=== PATIENT | male | born 1990 | race African-American/Black ===

== ENCOUNTER 2018-03-25 18:16 | Emergency (ER) | payer BC ==
--- NOTE | 2018-03-25 19:25 | RAD ---
RIGHT HAND THREE VIEWS: History: Fall, right hand injury. Comparison: 02-10-08 FINDINGS: Joint spaces are preserved. No acute fracture or dislocation. Small osteochondroma projects laterally from the proximal metaphysis of the proximal phalanx ring finger. IMPRESSION: No acute osseous abnormalities are demonstrated. POS: BALDO
--- NOTE | 2018-03-25 19:51 | RAD ---
RADIOGRAPH RIGHT WRIST THREE VIEWS: Date: 03-25-18 Time: 5:42 p.m. History: 28-year-old male status post acute blunt trauma to the wrist. FINDINGS: No fracture is identified. If there is snuffbox tenderness that suggests an occult scaphoid fracture, then the general recommendation is immobilization and follow up imaging in 5-10 days. Alignment is n ormal. The joints appear normal. No osseous abnormality is identified. IMPRESSION: Normal three view radiograph of right wrist. POS: JIN
== END 2018-03-25 19:30 | disposition home or self-care (01) ==
LOC: ERS 18:16
DX: M79.89 Other specified soft tissue disorders (principal); V80.010A Animal-rider injured by fall from or being thrown from horse in noncollision accident, initial encounter

== ENCOUNTER 2018-08-09 11:15 | Emergency (ER) | payer BC, SELFPAY ==
[2018-08-09] MEDS ORDERED: Ibuprofen 800 MG TAB ONE (11:56)
--- NOTE | 2018-08-09 12:10 | RAD ---
RIGHT WRIST 3 VIEWS: Date: 08/09/18 HISTORY: Injury. COMPARISON: 03/25/18. FINDINGS: Carpals appear normally aligned. No fracture identified. IMPRESSION: No acute findings. POS: BALDO
== END 2018-08-09 12:39 | disposition home or self-care (01) ==
LOC: ERS 11:15
DX: S63.501A Unspecified sprain of right wrist, initial encounter (principal); X58.XXXA Exposure to other specified factors, initial encounter; Y93.71 Activity, boxing; Y99.0 Civilian activity done for income or pay

== ENCOUNTER 2020-03-16 10:42 | Emergency (ER) | payer BC, SELFPAY | END 2020-03-16 11:13 | disposition home or self-care (01) | LOC: ERS 10:42 | DX: M79.652 Pain in left thigh (principal); M79.651 Pain in right thigh; D57.00 Hb-SS disease with crisis, unspecified | CPT/HCPCS: 99283 ==

== ENCOUNTER 2020-07-23 09:51 | Emergency (ER) | payer BC | END 2020-07-23 10:18 | disposition home or self-care (01) | LOC: ERS 09:51 | DX: R51.9 Headache, unspecified (principal); R10.84 Generalized abdominal pain; D57.1 Sickle-cell disease without crisis | CPT/HCPCS: 99283 ==

== ENCOUNTER 2021-05-06 18:09 | Emergency (ER) | payer BC, SELFPAY ==
[2021-05-06] MEDS ORDERED: Ketorolac Tromethamine 30 MG/ML VIAL ONE (19:04)
[2021-05-06 19:27] LABS: Hemoglobin 15.6 g/dL (14.0-18.0); Mean Corpuscular HGB CONC 33.3 g/dL (32.0-36.0); Mean Corpuscular Hemoglobin 32.1 pg (27.0-31.0); Mean Corpuscular Volume 96.4 fL (78.0-98.0); Platelet Count 133 thou/uL (130-400); RBC Distribution Width 11.1 % (11.5-14.5); Red Blood Cell (RBC) Count 4.87 mill/uL (4.70-6.10); White Blood Cell (WBC) Count 5.1 thou/uL (4.8-10.8)
[2021-05-06 19:53] LABS: ALT (SGPT) 20 U/L (8-55); AST (SGOT) 24 U/L (5-34); Albumin 4.3 g/dL (3.5-5.0); Alkaline Phosphatase 78 U/L (40-110); Anion Gap 14 mmol/L (10-20); BUN (Urea Nitrogen) 10 mg/dL (8.9-20.6); Bilirubin, Total 1.1 mg/dL (0.2-1.2); Calc. Creatinine Clearance 0 mL/min (70-130); Calcium 9.1 mg/dL (7.8-10.44); Carbon Dioxide 25 mmol/L (22-29); Chloride 105 mmol/L (98-107); Globulin 3.4 g/dL (2.4-3.5); Glucose 111 mg/dL (70-105); Potassium 3.9 mmol/L (3.5-5.1); Protein, Total 7.7 g/dL (6.0-8.3); Sodium 140 mmol/L (136-145)
[2021-05-06 20:03] LABS: MDiff Complete? YES
[2021-05-06 20:04] LABS: Band 11 % (5-11); Lymphocytes 17 % (21-51); Monocytes 18 % (0-10); Neutrophil 54 % (42-75)
== END 2021-05-06 20:20 | disposition home or self-care (01) ==
LOC: ERS 18:09
DX: J11.1 Influenza due to unidentified influenza virus with other respiratory manifestations (principal)
CPT/HCPCS: 71045; 80053; 83605; 85025; 87804; 96374; J1885

== ENCOUNTER 2021-11-10 18:23 | Emergency (ER) | payer SELFPAY | END 2021-11-10 21:14 | disposition home or self-care (01) | LOC: ERS 18:23 | DX: S50.12XA Contusion of left forearm, initial encounter (principal); W55.12XA Struck by horse, initial encounter ==

== ENCOUNTER 2021-11-15 10:32 | Emergency (ER) | payer SELFPAY | END 2021-11-15 13:09 | disposition home or self-care (01) | LOC: ERS 10:32 | DX: S50.12XA Contusion of left forearm, initial encounter (principal); W55.12XA Struck by horse, initial encounter ==

== ENCOUNTER 2022-11-09 21:09 | Emergency (ER) | payer SELFPAY | END 2022-11-09 22:18 | disposition home or self-care (01) | LOC: ERS 21:09 | DX: R51.9 Headache, unspecified (principal) | CPT/HCPCS: 99283 ==